=== PATIENT | male | born 1960 | race Caucasian/White ===

== ENCOUNTER 2019-07-11 05:54 | Inpatient (IN) | payer BC ==
[2019-07-02 12:12] VITALS: BMI 27.1
[2019-07-11] MEDS ORDERED: TRANEXAMIC ACID 1000 MG/10 ML VIAL IVPUSH ONE (06:25)
[2019-07-11] MEDS ORDERED: VANCOMYCIN 1,250 MG in DEXTROSE 5%-WATER - 250 ML IVPB ONE (06:25)
[2019-07-11] MEDS ORDERED: CEFAZOLIN 2 GM in DEXTROSE 5%-WATER - 50 ML IVPB ONE (06:25)
[2019-07-11] MEDS ORDERED: EPINEPHrine/PF 1 MG/1 ML (1:1,000) AMPULE ONE (07:07)
[2019-07-11] MEDS ORDERED: MIDAZOLAM HCL 2 MG/2 ML SINGLE DOSE VIAL ONE ×2 (07:07→07:16)
[2019-07-11] MEDS ORDERED: ROPIVACAINE HCL 0.5% 30ML VIAL ONE (07:08)
[2019-07-11] MEDS ORDERED: PROPOFOL 20 ML ONE ×3 (07:16)
[2019-07-11] MEDS ORDERED: ceFAZolin SODIUM 1 GM VIAL ONE (07:17)
[2019-07-11] MEDS ORDERED: SUCCINYLCHOLINE CHLORIDE 200 MG/10 ML SYRINGE ONE (07:17)
[2019-07-11] MEDS ORDERED: ROCURONIUM BROMIDE 50 MG/5 ML SYRINGE ONE (07:17)
[2019-07-11] MEDS ORDERED: VANCOMYCIN 1,000 MG VIAL (RESTRICTED TO ID ONLY) ONE (07:17)
[2019-07-11] MEDS ORDERED: ePHEDrine SULFATE 50 MG/1 ML AMPULE ONE (07:19)
[2019-07-11] MEDS ORDERED: PHENYLEPHRINE HCL 10 MG/1 ML SINGLE DOSE VIAL ONE (07:19)
--- NOTE | 2019-07-11 07:24 | HP ---
History & Physical Update - History History: No Change - Physical Physical: No Change - Assessment Assessment: No Change - Plan Plan: No Change (Initial H&P completed by Dr. David Dominguez on 06/27/19 is complete and accurate. No new complaints or medications. Here today for elective Right TKR secondary to his DJD.)
[2019-07-11] MEDS ORDERED: ONDANSETRON 4 MG/2 ML VIAL ONE (08:52)
[2019-07-11] MEDS ORDERED: ONDANSETRON 4 MG/2 ML VIAL IVPUSH PRN ×3 (09:53→11:50)
[2019-07-11] MEDS ORDERED: oxyCODONE HCL 5 MG TABLET PO PRN (09:53)
[2019-07-11] MEDS ORDERED: ACETAMINOPHEN 325 MG TABLET (FP) PO SCH (10:00)
[2019-07-11] MEDS ORDERED: LACTATED RINGERS SOLUTION 1,000 ML IV SCH ×3 (10:00→12:00)
--- NOTE | 2019-07-11 11:04 | PN ---
Progress Note (short form) - Note Progress Note: 58M s/p LEFT total hip replacement POD #0. -Pain control: per anaesthesia team. -DVT PPx: -Chemical: ASA 81mg PO BID x 6 weeks. -Mechanical: MEGAN's, SCD's. -Incentive spirometry q15 min. -PT/OT/Rehab, OOB. -WBAT LLE. -Post-op Ancef x 2 doses. -f/u post-op TOV: 8 hours max. -f/u AM labs. -Diet as tolerated. -Care per medical hospitalist team. -Discharge planning: f/u [facility] [place] Office 07/19/2019; call for appointment . -Will follow. Korey Good MD (Orthopaedic Surgery).
--- NOTE | 2019-07-11 11:06 | OP ---
Operative Note - Note: Operative Date: 07/11/19 Pre-Operative Diagnosis: Left hip DJD Operation: Left total hip replacement Implants: Agus. Cup - Trident II-Tritanium, 52mm cluster. Poly - 32mm, neutral. Stem - Accolade II, 127 deg NSA, #3. Head - Biolox/Delta Ceramic, 32mm diameter, -4mm length Post-Operative Diagnosis: Same as Pre-op Surgeon: Korey Good Wire Frame Maker: Viraj Carter Anesthesiologist/HANDLE TURNER: Raffy Thompson Anesthesia: Spinal Specimens Removed: Left femoral head Estimated Blood Loss (mls): 250 Fluid Volume Replaced (mls): 1,600 (Crystalloid) Operative Report Dictated: Yes
[2019-07-11] MEDS ORDERED: MAG HYDROX/AL HYDROX/SIMETH 30 ML UNIT-DOSE CUP PO PRN ×2 (11:07→11:50)
[2019-07-11] MEDS ORDERED: MAGNESIUM HYDROX 2400MG/30ML ORAL SUSPENSION 30 ML CUP PO PRN ×2 (11:07→11:50)
[2019-07-11] MEDS ORDERED: CEFAZOLIN 2 GM in DEXTROSE 5%-WATER - 50 ML IVPB SCH (11:15)
--- NOTE | 2019-07-11 11:43 | SURG ---
Surgery Alteration Inspector Note Alteration Inspector: Viraj Carter PA-C Date of Service: 07/11/19 Diagnosis: Left DJD Procedure: Left total hip replacement I was present for the entirety of the operative procedure. For further detail, please refer to operative report. Visit type - Case Type Case Type: Scheduled - New patient This patient is new to me today: Yes Date on this admission: 07/11/19
[2019-07-11] MEDS: ACETAMINOPHEN 325 MG TABLET (FP) PO SCH ×2 (12:15→18:27)
[2019-07-11] MEDS: oxyCODONE HCL 5 MG TABLET PO PRN ×2 (13:55→16:31)
--- NOTE | 2019-07-11 14:05 | OP ---
Date of Operation: 07/11/2019 Surgeon: Korey Good M.D. Home Care Music Therapist: Viraj Carter PA-C. Pre-Operative Diagnosis: Primary osteoarthritis left hip. Post-Operative Diagnosis: Primary osteoarthritis left hip. Surgical Procedure: Left total hip replacement via Direct Suprior approach. Findings: None. Anaesthesia: Spinal, block. Position: Right lateral decubitus. Incision: Direct superior. Estimated Blood Loss: 250cc. Intravenous Fluid: 1.6L crystalloid. Specimens: Left femoral head. Drains: None. Complications: None. Urine output: None. Bacteriology: None. Transfusions: None. Closure: #1 Vicryl, 2-0 Biosyn. Indications: The patient was indicated for a left total hip replacement in order to facilitate improved motion and mobilization, and to prevent the complications associated with a sedentary lifestyle. The patient was identified in the holding area by his armband. A long discussion was held with the patient (in the presence of the patients family) regarding the risks, benefits and alternatives of the above named procedure. Risks include but are not limited to: pain, bleeding, infection, damage to surrounding structures (including nerves, blood vessels, skin, ligaments, tendons and bone), wound complications, failure of hardware/implants/reduction, need for further surgery, blood clots, myocardial infarction, pulmonary embolism , cerebrovascular insult, anaesthesia complications, compartment syndrome, limb loss, limp, loss of function, and . Benefits as mentioned above. Alternatives include no surgery. All questions were answered. The patient understood and agreed to the procedure. Informed consent was obtained, witnessed and verified. The patients correct operative limb - that is the left lower extremity - was marked, and the patient was taken to the operating room after being seen by the anesthesia and nursing staff. Procedure: The patient was brought into the operating room, placed on the OR table and secured with a safety strap. Consent and the operative site were again verified with the patient and nursing and anaesthesia staff. Anaesthesia, IV antibiotics, and TXA were then administered without complication. A time out was done, led by me the attending surgeon. The patient was gently turned into the right lateral decubitus position. An axillary roll was placed. A Stulberg hip positioner with well-padded bolsters was used to secure the patient in the lateral decubitus position. The down arm was placed on a well-padded arm board. The up arm was brought across the patients body and placed on 2 pillows. Foam egg crates were placed under the down knee and ankle, and bony prominences were well padded. The operative site was then prepped and draped in the standard sterile fashion. Time out was again done and the case began. Operation: A standard Direct Superior surgical approach was utilized to access the hip joint. With a #10 blade, a skin incision was taken from the posterior-superior corner of the greater trochanter in a posterior-superior direction. This was approximately 10cm in length. Electrocautery was utilized to carry the deep dissection down to the level of the gluteus иван fascia. Hemostasis was assured using electrocautery (bipolar and unipolar). The gluteus иван fascia was incised, and the fibers of gluteus иван were in line with the trajectory of the incision. This confirmed the accuracy of our planned incision based on palpated landmarks and surface anatomy. A Baker elevator was used to split the distal fibers of gluteus иван, in line with the fibers, just proximal to their insertion into the iliotibial band. Great care was taken not to incise the iliotibial band. Gluteus иван fibers were split proximally using the Baker elevator until reaching the apex of the wound. Again, hemostasis was assured. The carmine-capsular fat pad was exposed utilizing curved handle bar retractors. The carmine-capsular fat pad was excised off the inferior border of the gluteus medius muscle belly, exposing the insertion of the hip short external rotator muscle group. The piriformis tendon was identified and easily retracted superiorly. The inferior gemellus muscle was then released from its insertion using electrocautery. There was no tendon to tag. Next, the hip joint capsule was visualized. Electrocautery was used to perform a capsulotomy and synovial joint fluid was aspirated. Next, the superior leaflet of the capsule was elevated using a Baker elevator to create separation from the underlying labrum and also to create a plane for later placement of a supra-acetabular retractor. The labrum was excised using electrocautery. The hip was then gently dislocated. A standard femoral neck cut was made using an oscillating saw. A 3/4 " osteotome was delivered into the femoral head using mallet strikes. The femoral head was then removed. Anterior, inferior, and supra-acetabular retractors were placed to expose the acetabulum. The pulvinar was excised using electrocautery. Odd sized reamers were used to prepare the acetabular bone bed. Healthy blushes of bleeding were observed from the reamed cancellous bone bed. Next, a size 52mm Agus Trident II-Tritanium cup was impacted into position, achieving excellent press-fit. A size 32mm neutral polyethylene liner was then impacted into the cup. Excellent placement of the polyethylene liner, and excellent press fit of the cup were confirmed. Next, attention was turned to femoral preparation. The anterior and supra-acetabular retractors were removed. The cut femoral neck was then exposed using the inferior acetabular retractor around the calcar, and a straight 90-degree retractor to retract gluteus medius. The box-cutter osteotome was used with a mallet to removed bone from the lateral femoral neck. An opening reamer was delivered by hand to find the femoral canal. A lateralizing reamer was used with power to lateralize the proximal entry into the canal, so as to avoid placing the stem into varus. The femoral bone bed was then prepared using broaches with gentle mallet strikes. The tibia was used as a goniometer with which to dial in approximately 5 degrees of stem anteversion. Trial components were assembled and the hip was reduced. The hip was taken through a full range of motion and proved stable throughout this range of motion, including at the extremes of positions of compromised. All trial femoral components were removed. Another 1g of IV Ancef was administered so that the bone bed would be rich with antibiotic at the time of seating of the femoral implant. A Lyman Accolade II (127-degree NSA, high offset) #3 stem was then implanted using gentle mallet strikes, diligently matching the prepared degree of stem anteversion. With the stem fully seated, a 32mm diameter, -4mm length ceramic/Biolox femoral head was then selected and implanted. The hip was once again reduced, and taken through a full range of motion. Stability was once again assured. Leg length was satisfactory. The wounds were copiously irrigated, as they had been regularly throughout the case so as to keep the retracted tissues wet, and in order to flush out wound debris. The capsule was primarily repaired using #1 Vicryl sutures in simple interrupted fashion. The tagged piriformis tendon was released and tied to the posterior-lateral corner of the greater trochanter. The remaining wounds were again irrigated. Hemostasis was assured and the wound was closed primarily using #1 Vicryl sutures. A 2-0 Biosyn suture was used to perform a subcuticular wound closure. A sterile, compressive dressing was applied. The sponge and needle counts were correct at the end of the case and the attending was present and scrubbed throughout the case. The patient was then transferred into a supine position and onto the hospital bed. A standard AP-pelvis x-ray was taken, demonstrating good overall alignment with a well reduced, congruent hip. There was no evidence of subsidence, loosening, or carmine-prosthetic fracture. The patient was then was then transferred to the recovery room without incident/complications and in stable condition, having tolerated the procedure well. MD DAVID Lewis/[id number] MTDD
[2019-07-11] MEDS: CEFAZOLIN 2 GM/D5W 2 GM/50 ML ML IVPB SCH ×2 (16:00→22:56)
--- NOTE | 2019-07-11 20:12 | HP ---
Admitting History and Physical - Admission Chief Complaint: left hip pain History Source: Patient, Family Member Limitations to Obtaining History: No Limitations - Smoking History Smoking history: Never smoked Have you smoked in the past 12 months: No - Alcohol/Substance Use Hx Alcohol Use: Yes (BEER OCCASIONALLY) Home Medications - Allergies Allergies/Adverse Reactions: Allergies Allergy/AdvReac Type Severity Reaction Status Date / Time morphine Allergy Intermediate Nausea Verified 07/02/19 10:59 - Home Medications Home Medications: Ambulatory Orders Mv-Mins/Folic/Lycopene/Ginkgo [One Daily For Men 50+ Adv Tab] 1 each PO DAILY Family Disease History - Family Disease History Family History: Unremarkable Review of Systems - Review of Systems Constitutional: reports: Weakness Eyes: reports: No Symptoms HENT: reports: No Symptoms Neck: reports: No Symptoms Cardiovascular: reports: No Symptoms Respiratory: reports: No Symptoms Gastrointestinal: reports: No Symptoms Genitourinary: reports: No Symptoms Musculoskeletal: reports: Joint Pain Integumentary: reports: No Symptoms Neurological: reports: No Symptoms Endocrine: reports: No Symptoms Hematology/Lymphatic: reports: No Symptoms Psychiatric: reports: No Symptoms Pain Intensity: 6 Physical Examination Vital Signs: Vital Signs Temperature 98.4 F 07/11/19 19:07 Pulse Rate 81 07/11/19 19:07 Respiratory Rate 18 07/11/19 19:07 Blood Pressure 112/68 07/11/19 19:07 O2 Sat by Pulse Oximetry (%) 100 07/11/19 19:07 Constitutional: Yes: Well Nourished, No Distress Eyes: Yes: WNL HENT: Yes: WNL Neck: Yes: WNL Cardiovascular: Yes: WNL Respiratory: Yes: WNL Gastrointestinal: Yes: WNL ...Rectal Exam: Yes: Deferred Renal/: Yes: WNL Musculoskeletal: Yes: Joint Stiffness Extremities: Yes: WNL Edema: No Peripheral Pulses WNL: Yes Integumentary: Yes: WNL Wound/Incision: Yes: Clean/Dry, Well Approximated, Dressing Dry and Intact Neurological: Yes: WNL Assessment/Plan 58M s/p LEFT total hip replacement POD #0. no complications. cont pain management. incentive spirometry. -GI, DVT prophylaxis. -PT/OT/Rehab, OOB. -ID: treated with Ancef carmine-operatively. AM labs will f/u in AM assessment and plan discussed with pt and family at bedside
[2019-07-11] MEDS: SENNOSIDES/DOCUSATE COMBO (SENNA PLUS) TABLET (UD) PO SCH (21:09)
[2019-07-11] MEDS: oxyCODONE HCL 10 MG SUSTAINED ACTING TABLET PO SCH (21:10)
[2019-07-11] MEDS: ASPIRIN 81 MG CHEWABLE TABLETS PO SCH (21:10)
[2019-07-11] MEDS ORDERED: ASPIRIN 325 MG TABLET PO SCH (22:00)
[2019-07-11] MEDS ORDERED: SENNOSIDES/DOCUSATE COMBO (SENNA PLUS) TABLET (UD) PO SCH (22:00)
[2019-07-12] MEDS: CEFAZOLIN 2 GM/D5W 2 GM/50 ML ML IVPB SCH (03:56)
[2019-07-12] MEDS: oxyCODONE HCL 5 MG TABLET PO PRN ×2 (06:16→13:52)
[2019-07-12] MEDS: ACETAMINOPHEN 325 MG TABLET (FP) PO SCH ×5 (06:17→17:50)
[2019-07-12 07:07] LABS: HEMATOCRIT 33.9 % (35.4-49); HEMOGLOBIN 11.4 GM/dl (11.7-16.9); MCH 31.1 pg (25.7-33.7); MCHC 33.6 g/dl (32.0-35.9); MEAN CELL VOLUME 92.8 fl (80-96); MEAN PLT VOLUME 8.4 fl (7.5-11.1); PLATELET COUNT 164 K/MM3 (134-434); RBC 3.65 M/mm3 (4.00-5.60); RDW 12.5 % (11.9-15.9); WHITE BLOOD COUNT 12.6 K/mm3 (4.0-10.8)
[2019-07-12 07:15] LABS: CALCIUM 8.2 mg/dl (8.5-10); CREATININE 1.2 mg/dl (0.55-1.3); POTASSIUM 4.5 mmol/L (3.5-5.1)
--- NOTE | 2019-07-12 07:58 | PN ---
Progress Note (short form) - Note Progress Note: POD #1 Alert. Sitting in chair at bedside. C/o mild incisional tenderness. Adequate pain control w/ PRN medications as ordered. States he's been OOB and ambulated a little w/ walker assist. Voiding spontaneously. Denies n/v/f/c, CP, palpitations, SOB or BRYANT. Last Vital Signs Temp Pulse Resp BP Pulse Ox 98.4 F 73 18 99/63 98 07/12/19 06:00 07/12/19 06:00 07/12/19 06:00 07/12/19 06:00 07/12/19 06:00 CBC, BMP 07/12/19 06:57 07/12/19 06:57 Gen: nad LLE: Dressing c/d/i. No hematoma. Palpable pulses: fem, pop, dp, pt. No edema or swelling. Scds bilat. Problem List - Problems (1) Status post total replacement of left hip Assessment/Plan: POD #1 S/P Lt BRUNA GOALS for today: -Pain control. -DVT PPx: -Chemical: ASA 81 mg po BID x 6 weeks -Mechanical: MEGAN's, SCD's -Incentive Spirometry. -OOB and ambulate w/ PT -WBAT LLE -Cont current care plan as ordered -DC planning for 07/13/19. No need for rehab as he will be going to his son's home in the [place]. Above plan discussed w/ my attending and agrees. Code(s): Z96.642 - PRESENCE OF LEFT ARTIFICIAL HIP JOINT (2) Degenerative joint disease of left hip Code(s): M16.12 - UNILATERAL PRIMARY OSTEOARTHRITIS, LEFT HIP
[2019-07-12] MEDS: oxyCODONE HCL 10 MG SUSTAINED ACTING TABLET PO SCH ×3 (09:39→21:13)
[2019-07-12] MEDS ORDERED: PANTOPRAZOLE 40 MG TABLET (FP) PO SCH (10:00)
[2019-07-12] MEDS: PANTOPRAZOLE 40 MG TABLET (FP) PO SCH (10:03)
[2019-07-12] MEDS: ASPIRIN 81 MG CHEWABLE TABLETS PO SCH ×2 (10:08→21:14)
[2019-07-12] MEDS: SENNOSIDES/DOCUSATE COMBO (SENNA PLUS) TABLET (UD) PO SCH ×2 (10:08→21:14)
--- NOTE | 2019-07-12 12:52 | PN ---
Progress Note (short form) - Note Progress Note: 58M POD1 s/p L THR under spinal anesthetic with peripheral nerve block. Pt states that pain is well controlled and does not report any anesthetic complications. AVSS. Continue current regimen.
--- NOTE | 2019-07-12 18:37 | PN ---
Progress Note, Physician Chief Complaint: left hip pain - Current Medication List Current Medications: Active Medications Acetaminophen (Tylenol -) 650 mg PO Q6H [facility] Stop: 07/14/19 09:59 Last Admin: 07/12/19 17:50 Dose: 650 mg Al Hydroxide/Mg Hydroxide (Mylanta Oral Suspension -) 30 ml PO Q4H PRN PRN Reason: DYSPEPSIA Aspirin (Asa -) 81 mg PO BID [facility] Last Admin: 07/12/19 10:08 Dose: 81 mg Fentanyl (Sublimaze Injection -) 50 mcg IVPUSH [id number] PRN PRN Reason: PAIN-PACU ORDER X 4 DOSES ONLY Magnesium Hydroxide (Milk Of Magnesia -) 30 ml PO PRN PRN PRN Reason: CONSTIPATION Ondansetron HCl (Zofran Injection) 4 mg IVPUSH Q6H PRN PRN Reason: NAUSEA Oxycodone HCl (Roxicodone -) 5 mg PO Q3H PRN PRN Reason: PAIN LEVEL 1-5 Oxycodone HCl (Roxicodone -) 10 mg PO Q3H PRN PRN Reason: PAIN LEVEL 6-10 Last Admin: 07/12/19 13:52 Dose: 10 mg Oxycodone HCl (Oxycontin -) 10 mg PO BID [facility] Stop: 07/14/19 09:54 Last Admin: 07/12/19 10:03 Dose: 10 mg Pantoprazole Sodium (Protonix -) 40 mg PO DAILY [facility] Last Admin: 07/12/19 10:03 Dose: 40 mg Senna/Docusate Sodium (Pericolace -) 2 tablet PO BID [facility] Last Admin: 07/12/19 10:08 Dose: 2 tablet - Objective Vital Signs: Vital Signs Temperature 98.3 F 07/12/19 14:00 Pulse Rate 82 07/12/19 14:00 Respiratory Rate 16 07/12/19 14:00 Blood Pressure 102/64 07/12/19 14:00 O2 Sat by Pulse Oximetry (%) 98 07/12/19 14:00 Constitutional: Yes: Well Nourished, No Distress, Calm Eyes: Yes: WNL HENT: Yes: WNL Neck: Yes: WNL Cardiovascular: Yes: WNL Respiratory: Yes: WNL Gastrointestinal: Yes: WNL ...Rectal Exam: Yes: Deferred Genitourinary: Yes: WNL Musculoskeletal: Yes: Joint Stiffness Extremities: Yes: WNL Edema: No Peripheral Pulses WNL: Yes Integumentary: Yes: WNL Wound/Incision: Yes: Clean/Dry, Well Approximated, Dressing Dry and Intact Neurological: Yes: WNL Psychiatric: Yes: WNL Labs: CBC, BMP 07/12/19 06:57 07/12/19 06:57 Assessment/Plan 58M s/p LEFT total hip replacement POD #1 no complications. cont pain management. incentive spirometry. -GI, DVT prophylaxis. -PT/OT/Rehab, OOB. -ID: treated with Ancef carmine-operatively. will f/u in AM assessment and plan discussed with pt and family at bedside. will DC home in AM if cleared by cardiology.
[2019-07-13] MEDS: ACETAMINOPHEN 325 MG TABLET (FP) PO SCH ×3 (05:25→11:55)
[2019-07-13 07:44] LABS: HEMATOCRIT 32.8 % (35.4-49); HEMOGLOBIN 11.1 GM/dl (11.7-16.9); MCH 31.3 pg (25.7-33.7); MCHC 33.7 g/dl (32.0-35.9); MEAN CELL VOLUME 92.8 fl (80-96); MEAN PLT VOLUME 8.5 fl (7.5-11.1); PLATELET COUNT 149 K/MM3 (134-434); RBC 3.53 M/mm3 (4.00-5.60); RDW 12.8 % (11.9-15.9)
--- NOTE | 2019-07-13 07:46 | PN ---
Progress Note (short form) - Note Progress Note: POD #2 Alert. Sitting in chair at bedside. C/o mild incisional tenderness. Adequate pain control w/ PRN medications as ordered. PT notes reviewed and doing well. Voiding spontaneously. Denies n/v/f/c, CP, palpitations, SOB or BRYANT. Last Vital Signs Temp Pulse Resp BP Pulse Ox 98.7 F 81 18 113/66 99 07/13/19 06:00 07/13/19 06:00 07/13/19 06:00 07/13/19 06:00 07/13/19 06:00 Gen: nad LLE: dressing c/d/i. No hematoma. GMVI. SCDs. No swelling/edema. DP/PT intact Problem List - Problems (1) Status post total replacement of left hip Assessment/Plan: POD #2 s/p Left BRUNA S/P L TKA R TKA POD #0 - Pain control. -DVT PPx: -Chemical: ASA 81 mg po BID x 6 weeks -Mechanical: MEGAN's, SCD's -Incentive Spirometry. -PT - OOB. -WBAT LLE -Care per medical hospitalist team. -Discharge planning today per Dr. Carreon. -f/u [facility] [place] office on. Call for appointment: Above pland discussed with Dr. Korey Good and agrees. Code(s): Z96.642 - PRESENCE OF LEFT ARTIFICIAL HIP JOINT (2) Degenerative joint disease of left hip Code(s): M16.12 - UNILATERAL PRIMARY OSTEOARTHRITIS, LEFT HIP
[2019-07-13] MEDS: SENNOSIDES/DOCUSATE COMBO (SENNA PLUS) TABLET (UD) PO SCH (10:06)
[2019-07-13] MEDS: ASPIRIN 81 MG CHEWABLE TABLETS PO SCH (10:06)
[2019-07-13] MEDS: PANTOPRAZOLE 40 MG TABLET (FP) PO SCH (10:07)
[2019-07-13] MEDS: oxyCODONE HCL 10 MG SUSTAINED ACTING TABLET PO SCH (10:07)
--- NOTE | 2019-07-13 11:32 | DS ---
"Physical Examination Vital Signs: Vital Signs Temperature 98.7 F 07/13/19 06:00 Pulse Rate 81 07/13/19 06:00 Respiratory Rate 18 07/13/19 06:00 Blood Pressure 113/66 07/13/19 06:00 O2 Sat by Pulse Oximetry (%) 99 07/13/19 07:57 Labs: CBC, BMP 07/13/19 06:53 07/12/19 06:57 Discharge Summary Reason For Visit: LEFT HIP OSTEOARTHRITIS Current Active Problems Degenerative joint disease of left hip (Acute) Status post total replacement of left hip (Acute) Hospital Course: 58M s/p LEFT total hip replacement POD #2 no complications. cont pain management. incentive spirometry. -GI, DVT prophylaxis. -PT/OT/Rehab, OOB. -ID: treated with Ancef carmine-operatively. Condition: Stable - Instructions Diet, Activity, Other Instructions: DR. GOOD DISCHARGE INSTRUCTIONS FOR HIP REPLACEMENT Post Operative Instructions Physical activity Physical Therapist will come to your home for the first 5 days. You will be set up with outpatient PT at your first post-operative visit. Use assistive devices for ambulation at all times. Weight bearing as tolerated on your surgical side. Wound care Leave your surgical dressing in place. Do not change the dressing until seen by your surgeon in the office. No baths or showers. Do not submerge your incision. Do not apply any ointments or lotions to your incision. Please call the office if your dressing is soiled/dirty or is falling off. Apply Graduated Compression Stockings (TEDS) to both lower extremities-remove daily for hygiene ONLY. Diet There are no dietary restrictions. Eat healthy, high-fiber foods. Drink 6 to 8 glasses of liquid each day. This will assist in keeping your bowels are regular. Pain management Any pain prescription medication ordered should be taken as prescribed for moderate to severe pain. Do not take additional Tylenol while taking Percocet. Posterior Hip Precautions: Do not cross the leg you had surgery on over your other leg. (Do not cross your legs.)Use an elevated toilet seat. Do not sit on low chairs or beds. Use purple pillow (abductor) when lying in bed. Take Aspirin 81 mg two times a day for a total of 6 weeks to prevent blood clots. Call Dr. Good for any of the following: Severe pain not relieved by medication Fever of 101 or higher Excessive bleeding or drainage on dressing Inability to urinate If you experience chest pain or shortness of breath, please seek emergency care immediately. Please call the office at to confirm your post-op appointment for the week following surgery. [facility] This report was requested by: Viraj Carter | Reference #: [id number] - Home Medications Comprehensive Discharge Medication List: Ambulatory Orders Mv-Mins/Folic/Lycopene/Ginkgo [One Daily For Men 50+ Adv Tab] 1 each PO DAILY"
[2019-07-13 14:01] VITALS: BP 111/70; PULSE 93; TEMP 99.4
--- NOTE | 2019-07-13 17:49 | PATH ---
Surgical Pathology Report Patient Name: NITIN SEARS Med. Rec. #: [id number] /Age/Gender: 1960 (Age: 58) / M Account: <[id number]> Location: [facility] Taken: 07/11/2019 Received: 07/11/2019 Reported: 07/13/2019 Physicians: Korey Good M.D. Specimen(s) Received LEFT FEMORAL HEAD Clinical History Left hip osteoarthritis Final Diagnosis BONE, FEMORAL HEAD, LEFT, TOTAL HIP REPLACEMENT: BONE WITH DEGENERATIVE JOINT DISEASE. Electronically Signed Ilene Schneider M.D. Gross Description Received in formalin, labeled "left femoral head," is a 5 cm. femoral head with 1.5 femoral neck. The margin of resection is smooth. No areas of eburnation are identified. The remaining articular surface is smooth. The underlying trabecular bone is yellow and hard. A insurance verification representative section is submitted in one cassette, following decalcification. [email or web address]/07/12/2019 [email or web address]/07/12/2019
== END 2019-07-13 15:30 | disposition home or self-care (01) | DRG 470 ==
LOC: UNDOADMIN 05:54 → FM/S 05:54 → FASUSAT 05:54 → EDSTATUS 10:00 → FASUSAT 11:08 → FM/S 11:09 → FASUSAT 11:09 → FM/S 12:51
PROVIDERS: ADMIT Internal Medicine; ATTEND Internal Medicine
PROC: 0SRB04Z Replacement of Left Hip Joint with Ceramic on Polyethylene Synthetic Substitute, Open Approach (ICD-10-PCS; principal; 2019-07-11 09:09)
DX: M16.12 Unilateral primary osteoarthritis, left hip (principal); M25.552 Pain in left hip
CPT/HCPCS: 36415; 73502-TC-LT-FY; 80048; 85027; 86803; 87389; 94760; 97116-GP; 97163-GP